=== PATIENT | female | born 1980 | race Caucasian/White ===

== ENCOUNTER → 2023-07-08 | Outpatient (CLI) | payer OTHER ==
[~2023-07-08] MED LIST: ADIPEX-P37.5 MG PO; ADVIL200 MG PO; ALBUTEROL0.83 MG/ML IH; AMBIEN 10MG10 MG PO; AMERGE 2.5MG T2.5 MG PO; AMOXICILLIN 8751 TAB PO; ANUSOL-HC SUPPO25 MG RC; CARAFATE 1GM1 G PO; CEFTIN 250250 MG/TAB PO; CEFTIN500 MG PO; CELEBREX 200MG200 MG PO; CELEXA; CELEXA 20MG20 MG/TAB PO; CELEXA40 MG; CEPHALEXIN500 M1 PO; COLACE 100100 MG/CAP PO; COUMADIN; COUMADIN 22.5 MG/TAB PO; COUMADIN 5MG5 MG/TAB PO; COUMADIN4 MG; COUMADIN4 MG PO; CRESTOR20 MG PO; DAZIDOX20 MG PO; DOXYCYCLINE 10100 MG PO; DOXYCYCLINE100 M3 PO; ELIQUIS 5MG PO; ESCITALOPRAM PO; EXCEDRIN1 TAB PO; FLAGYL500 MG PO; FOLIC ACID 11 MG/TA1 PO; FOLIC ACID PO; GABAPENTIN100 M1 PO; HCTZ 25MG TAB25 MG PO; HYDROCORTISONE30 GM RC; IMITREX100 MG PO; LEVAQUIN 750MG750 M1 PO; LEVOXYL0.1 MG PO; LEVSIN0.125 M1 PO; LEXAPRO20 MG PO; LOVENOX 100100 MG/ML SQ; LOVENOX120 MG/0.8 SC; MAG-OX 400400 MG/TAB PO; MAGNESIUM ELEME30 MG PO; MEDROL 4MG DOSPA4 MG PO; METROGINE; MOBIC15 MG PO; MOTRIN 600600 MG/TAB PO; MULTI VITAMINS1 TAB PO; NATURAL MAGNES200 MG PO; NORCO 325 MG-51 TAB PO; NURTEC ODT75 MG PO; NYSTATIN OR100 MU/ML PO; OXY IR5 MG PO; OXYCODONE HCL5 MG PO; OXYCONTIN 10MG10 MG PO; PERCOCET 325 MG1 TA2 PO; PERCOCET 325 MG1 TA3 PO; PHARMASSURE ZIN50 MG PO; PHENERGAN 25 TA25 MG PO; PHENERGAN25 MG RC; PRAVACHOL 40MG40 MG PO; PRAZOSIN PO; PREDNISONE20 MG PO; PRIL40 PO; PRILOSEC 20MG20 MG PO; PROMETHAZINE12.5 M5 PO; PROTONIX20 MG PO; PYRIDIUM 100MG100 MG PO; RELPAX 40MG TAB40 MG PO; ROXICODONE 55 MG/TAB PO; RT ALBUTER2.5 MG/0.5 IH; SYNTHROID0.05 MG/TA PO; SYNTHROID0.088 MG/T PO; SYNTHROID0.1 MG/TAB PO; SYNTHROID0.125 MG/T PO; TENORMIN 2525 MG/TAB PO; THE MEDICINE S200 M2 PO; TIROSINT150 MC1 PO; TOPAMAX 100MG100 M1 PO; TOPAMAX50 MG PO; TYLENOL 500MG500 MG PO; ULTRAM 50MG TAB50 MG PO; VALIUM 5MG T5 MG/TAB PO; VICODIN 5/5001 UDTAB PO; VITAMIN B-2 100MG PO; VITAMIN B225 MG PO; XANAX1 MG PO; ZITHROMAX Z PA250 MG PO; ZOFRAN 4MG T4 MG/TAB PO; ZOFRAN ODT4 MG PO; ZOFRAN ODT8 MG PO; ZOFRAN8 MG PO
== END ==
LOC: COL.RAD 07-05 16:30
DX: S06.0X0D Concussion without loss of consciousness, subsequent encounter (principal)